=== PATIENT | male | born 1980 | race Caucasian/White ===

== ENCOUNTER 2019-12-03 16:54 | Emergency (ER) | payer OTHER ==
[~2019-12-03] VITALS: Ht 170.2 cm; Wt 79.4 kg
[2019-12-03 17:13] VITALS: BP 134/70
== END 2019-12-03 17:38 | disposition home or self-care (01) ==
LOC: ER 16:54
DX: S80.862A Insect bite (nonvenomous), left lower leg, initial encounter (principal); Z59.0 Homelessness; W57.XXXA Bitten or stung by nonvenomous insect and other nonvenomous arthropods, initial encounter; Y93.01 Activity, walking, marching and hiking; Y92.89 Other specified places as the place of occurrence of the external cause; Y99.8 Other external cause status